=== PATIENT | female | born 2000 | race African-American/Black ===

== ENCOUNTER 2023-10-28 09:19 | Outpatient (REF) | payer OTHER, SELFPAY ==
[2023-10-28 11:18] LABS: Estimated Average Glucose 131 mg/dL; Hemoglobin A1c % 6.2 % (<6.0)
== END 2023-10-28 09:20 | disposition home or self-care (01) ==
LOC: HO.LAB 09:19
PROVIDERS: PCP Family Medicine Adult Medicine; Visit Provider Family Medicine Adult Medicine
DX: E11.9 Type 2 diabetes mellitus without complications (principal)
CPT/HCPCS: 36415; 83036